=== PATIENT | male | born 1990 | race African-American/Black ===

== ENCOUNTER 2017-10-16 10:57 | Emergency (ER) | payer MEDICAID ==
[~2017-10-16] VITALS: Ht 182.9 cm; Wt 77.1 kg
[2017-10-16 11:11] VITALS: BP 113/63
== END 2017-10-16 11:42 | disposition home or self-care (01) ==
LOC: ER 10:57
DX: S60.221D Contusion of right hand, subsequent encounter (principal)

== ENCOUNTER 2022-06-12 12:23 | Emergency (ER) | payer MEDICAID, OTHER ==
[~2022-06-12] VITALS: Ht 182.9 cm; Wt 84.0 kg
[2022-06-12 14:42] VITALS: BP 128/64
[2022-06-12] MEDS ORDERED: IBUPROFEN 800 MG TAB PO ONE (15:00)
[2022-06-12] MEDS ORDERED: HYDR-4902 PO ×2 (15:53→16:01)
[2022-06-12] MEDS ORDERED: IBUP800T26 PO ×2 (15:53→16:01)
== END 2022-06-12 15:59 | disposition home or self-care (01) ==
LOC: ER 12:23
DX: S16.1XXA Strain of muscle, fascia and tendon at neck level, initial encounter (principal); S39.012A Strain of muscle, fascia and tendon of lower back, initial encounter; V49.9XXA Car occupant (driver) (passenger) injured in unspecified traffic accident, initial encounter; Y93.89 Activity, other specified; Y92.410 Unspecified street and highway as the place of occurrence of the external cause; Y99.8 Other external cause status
CPT/HCPCS: 72040; 72100